=== PATIENT | female | born 1935 | race Caucasian/White ===

== ENCOUNTER 2016-10-28 21:34 | Inpatient (IN) | payer OTHER ==
[~2016-10-28] VITALS: Ht 149.9 cm; Wt 59.3 kg
[2016-10-28] MEDS ORDERED: METF500T7 PO (21:46)
[2016-10-28] MEDS ORDERED: OMEP20 PO (21:46)
[2016-10-28] MEDS ORDERED: LOSA50TA37 PO (21:46)
[2016-10-28] MEDS ORDERED: ALBU8HFA IH (21:46)
[2016-10-28] MEDS ORDERED: AMOX1TAB15 PO (21:46)
[2016-10-28] MEDS ORDERED: GLIP5 PO (21:46)
[2016-10-28] MEDS ORDERED: METO50 PO (21:46)
[2016-10-28] MEDS ORDERED: ASPI-556 PO (21:46)
[2016-10-28 21:47] LABS: GLUCOSE,POINT OF CARE 188 MG/DL (70-110)
[2016-10-28 22:16] LABS: BASOPHILS # (AUTO) 0.53 K/uL (0.00-0.20); BASOPHILS % (AUTO) 2.1 % (0.0-2.0); EOSINOPHILS # (AUTO) 0.33 K/uL (0.00-0.70); EOSINOPHILS % (AUTO) 1.29 % (1.0-6.0); HEMATOCRIT 41.2 % (36-46); HEMOGLOBIN 13.1 g/dL (12.0-16.0); LYMPHOCYTES # (AUTO) 1.3 K/uL (1.0-4.8); LYMPHOCYTES % (AUTO) 5.2 % (22.0-44.0); MEAN CORPUSCULAR HEMOGLOBIN 28.3 pg (26.0-34.0); MEAN CORPUSCULAR HGB CONC 31.7 G/dL (31.0-37.0); MEAN CORPUSCULAR VOLUME 89 fL (80-100); MONOCYTES # (AUTO) 0.4 K/uL (0.1-1.0); MONOCYTES % (AUTO) 1.8 % (2.0-9.0); NEUTROPHILS # (AUTO) 22.8 K/uL (1.8-7.7); PLATELET COUNT (AUTO) 425 K/uL (150-450); RED BLOOD CELL COUNT(AUTO) 4.62 MIL/uL (4.00-5.20); RED CELL DISTRIBUTION WIDTH 16.3 % (11.5-14.5); WHITE BLOOD COUNT (AUTO) 25.4 K/uL (4.5-11.0)
[2016-10-28 22:17] LABS: NEUTROPHILS % (AUTO) 89.7 % (40.0-70.0)
[2016-10-28 22:26] LABS: ANION GAP 9 mmol/L (8-16); CALCIUM, TOTAL 8.3 mg/dL (8.8-10.5); CARBON DIOXIDE 27 mmol/L (22-29); CHLORIDE 101 mmol/L (98-107); CREATININE 1.24 mg/dL (0.60-1.30); GLOMERULAR FILTR. RATE CALC 42 mL/min (>60); SODIUM SERUM 137 mmol/L (136-145); UREA NITROGEN, BLOOD 18 mg/dL (7-18)
[2016-10-28 22:33] LABS: ALANINE AMINOTRANSFERASE 83 U/L (12-78); ALBUMIN 3.2 g/dL (3.4-5.0); ASPARTATE AMINOTRANSFERASE 74 U/L (15-37); CREATINE KINASE, TOTAL 91 U/L (26-192); TOTAL PROTEIN, SERUM 6.7 g/dL (6.4-8.2)
[2016-10-28 22:49] LABS: B-TYPE NATRIURETIC PEPTIDE 721 pg/mL (0-100)
[2016-10-28 22:57] LABS: RBC MORPHOLOGY COMMENT NORMAL RBC MORPH
[2016-10-28] MEDS ORDERED: ALBUTEROL SULFATE 2.5 MG/0.5 ML NEB SOLUTION NEB ONE (23:15)
[2016-10-28] MEDS ORDERED: 0.9% SODIUM CHLORIDE 5 ML NEB SOLUTION NEB ONE (23:26)
[2016-10-29 00:06] LABS: CREATINE KINASE MB 2.6 ng/mL (0-5)
[2016-10-29] MEDS ORDERED: CefTRIAXone 1 GM/DEXTROSE 50 ML IV ONE (00:30)
[2016-10-29] MEDS ORDERED: FUROSEMIDE 40 MG/4 ML VIAL IVP ONE (00:30)
[2016-10-29] MEDS ORDERED: ENOXAPARIN SODIUM 60 MG/0.6 ML PF SYRINGE SQ ONE ×2 (01:00→19:00)
[2016-10-29 01:14] LABS: APPEARANCE,URINE CLOUDY (CLEAR); GLUCOSE, URINE (UA) NEGATIVE (NEGATIVE); KETONES,URINE NEGATIVE (NEGATIVE); LEUKOCYTE ESTERASE ,URINE SMALL (NEGATIVE); OCCULT BLOOD,URINE TRACE (NEGATIVE); PH,URINE 5.5 (5.0-8.0); PROTEIN,URINE SEE CONFIRM (NEGATIVE)
[2016-10-29 01:15] LABS: ADD UA MICROSCOPIC YES
[2016-10-29 01:28] LABS: SQUAMOUS EPITHELIAL CELL,UR Rare /LPF (None Seen); SULFOSALICYLIC ACID,URINE 1+ (Negative)
[2016-10-29] MEDS ORDERED: ASPIRIN 325 MG TABLET PO ONE (04:30)
[2016-10-29 05:17] VITALS: BP 131/52
[2016-10-29] MEDS ORDERED: MORPHINE SULFATE 2 MG/ML SYRINGE IVP PRN (05:30)
[2016-10-29] MEDS ORDERED: ACETAMINOPHEN 325 MG TABLET PO PRN (05:30)
[2016-10-29] MEDS ORDERED: HYDROCODONE/ACETAMINOPHEN 5-325 MG TABLET PO PRN (05:30)
[2016-10-29] MEDS ORDERED: BISACODYL 10 MG RECTAL RECTAL SUPPOSITORY PR PRN (05:30)
[2016-10-29] MEDS ORDERED: ONDANSETRON HCL 4 MG/2 ML VIAL IVP PRN (05:30)
[2016-10-29 07:49] VITALS: BP 136/53
[2016-10-29] MEDS ORDERED: ALBUTEROL SULFATE 2.5 MG/0.5 ML NEB SOLUTION NEB SCH (08:00)
[2016-10-29 08:05] LABS: BASOPHILS # (AUTO) 0.11 K/uL (0.00-0.20); BASOPHILS % (AUTO) 0.5 % (0.0-2.0); EOSINOPHILS # (AUTO) 0.33 K/uL (0.00-0.70); EOSINOPHILS % (AUTO) 1.55 % (1.0-6.0); HEMATOCRIT 40.1 % (36-46); HEMOGLOBIN 12.6 g/dL (12.0-16.0); LYMPHOCYTES # (AUTO) 1.3 K/uL (1.0-4.8); MEAN CORPUSCULAR HEMOGLOBIN 28.2 pg (26.0-34.0); MEAN CORPUSCULAR HGB CONC 31.5 G/dL (31.0-37.0); MEAN CORPUSCULAR VOLUME 90 fL (80-100); MONOCYTES # (AUTO) 0.3 K/uL (0.1-1.0); MONOCYTES % (AUTO) 1.3 % (2.0-9.0); NEUTROPHILS # (AUTO) 19.3 K/uL (1.8-7.7); NEUTROPHILS % (AUTO) 90.6 % (40.0-70.0); PLATELET COUNT (AUTO) 374 K/uL (150-450); RED BLOOD CELL COUNT(AUTO) 4.47 MIL/uL (4.00-5.20); RED CELL DISTRIBUTION WIDTH 15.7 % (11.5-14.5); WHITE BLOOD COUNT (AUTO) 21.3 K/uL (4.5-11.0)
[2016-10-29 08:20] LABS: ALBUMIN 3.1 g/dL (3.4-5.0); BILIRUBIN,TOTAL 0.5 mg/dL (0.1-1.0); CALCIUM, TOTAL 8.2 mg/dL (8.8-10.5); CREATININE 1.25 mg/dL (0.60-1.30); POTASSIUM 4.4 mmol/L (3.5-5.1); TOTAL PROTEIN, SERUM 6.5 g/dL (6.4-8.2)
[2016-10-29 08:31] LABS: PROTHROMBIN TIME 10.5 SEC (9.4-11.6)
[2016-10-29] MEDS: PIPERACILLIN/TAZO 3.375 GM/D5W 50 ML IV SCH ×2 (09:00→18:08)
[2016-10-29] MEDS ORDERED: DOCUSATE SODIUM 100 MG CAPSULE PO SCH (09:00)
[2016-10-29] MEDS ORDERED: PANTOPRAZOLE SODIUM 40 MG/VIAL IVP SCH (09:00)
[2016-10-29] MEDS ORDERED: DEXTROSE 50%-WATER 25 GM/50 ML SYRINGE IVP PRN (11:00)
[2016-10-29] MEDS ORDERED: FUROSEMIDE 20 MG/2 ML VIAL IVP SCH (11:00)
[2016-10-29 11:15] VITALS: BP 134/55
[2016-10-29] MEDS: INSULIN ASPART 100 UNITS/ML SQ PRN ×3 (11:47→20:57)
[2016-10-29] MEDS ORDERED: HEPARIN SODIUM,PORCINE 1,000 UNITS/ML VIAL IVP ONE (12:00)
[2016-10-29 14:28] LABS: GLUCOSE,POINT OF CARE 213 MG/DL (70-110)
[2016-10-29] MEDS: OMEPRAZOLE 20 MG CAPSULE PO SCH (14:45)
[2016-10-29 15:37] VITALS: BP 136/51
[2016-10-29] MEDS: FUROSEMIDE 20 MG/2 ML VIAL IVP SCH ×2 (16:29→20:44)
[2016-10-29] MEDS: METOPROLOL TARTRATE 50 MG TABLET PO SCH (16:29)
[2016-10-29] MEDS: LOSARTAN POTASSIUM 50 MG TABLET PO SCH (16:29)
[2016-10-29] MEDS: ASPIRIN 81 MG EC TABLET PO SCH (16:29)
[2016-10-29] MEDS: NITROGLYCERIN 2% (1 GM=INCH) PACKET TP SCH ×3 (16:30→23:44)
[2016-10-29] MEDS: ENOXAPARIN SODIUM 60 MG/0.6 ML PF SYRINGE SQ SCH ×2 (16:30→20:44)
[2016-10-29] MEDS ORDERED: SODIUM CHLORIDE 0.9% 100 ML ONE (18:03)
[2016-10-29] MEDS: MetFORMIN HCL 500 MG ER TABLET PO SCH (18:07)
[2016-10-29 18:37] LABS: GLUCOSE COMMENT 1 Received Meds; GLUCOSE,POINT OF CARE 227 MG/DL (70-110)
[2016-10-29] MEDS ORDERED: CefTRIAXone 1 GM/DEXTROSE 50 ML IV SCH (19:00)
[2016-10-29 19:19] VITALS: BP 117/48
[2016-10-29] MEDS: OXYGEN THERAPY IH SCH (20:44)
[2016-10-29 23:52] VITALS: BP 122/48
[2016-10-30 04:37] VITALS: BP 129/49
[2016-10-30] MEDS: NITROGLYCERIN 2% (1 GM=INCH) PACKET TP SCH ×3 (06:49→18:18)
[2016-10-30] MEDS: INSULIN ASPART 100 UNITS/ML SQ PRN ×4 (06:54→20:56)
[2016-10-30 07:32] VITALS: BP 140/62
[2016-10-30 08:08] LABS: BASOPHILS # (AUTO) 0.16 K/uL (0.00-0.20); BASOPHILS % (AUTO) 0.8 % (0.0-2.0); EOSINOPHILS % (AUTO) 2.36 % (1.0-6.0); HEMATOCRIT 39.7 % (36-46); HEMOGLOBIN 12.6 g/dL (12.0-16.0); LYMPHOCYTES # (AUTO) 1.5 K/uL (1.0-4.8); LYMPHOCYTES % (AUTO) 7.3 % (22.0-44.0); MEAN CORPUSCULAR HEMOGLOBIN 28.3 pg (26.0-34.0); MEAN CORPUSCULAR HGB CONC 31.7 G/dL (31.0-37.0); MEAN CORPUSCULAR VOLUME 89 fL (80-100); MONOCYTES # (AUTO) 0.3 K/uL (0.1-1.0); MONOCYTES % (AUTO) 1.3 % (2.0-9.0); NEUTROPHILS # (AUTO) 18.6 K/uL (1.8-7.7); PLATELET COUNT (AUTO) 408 K/uL (150-450); RED BLOOD CELL COUNT(AUTO) 4.44 MIL/uL (4.00-5.20); RED CELL DISTRIBUTION WIDTH 15.5 % (11.5-14.5); WHITE BLOOD COUNT (AUTO) 21.1 K/uL (4.5-11.0)
[2016-10-30 08:10] LABS: NEUTROPHILS % (AUTO) 88.3 % (40.0-70.0)
[2016-10-30 08:11] LABS: RBC MORPHOLOGY COMMENT NORMAL RBC MORPH
[2016-10-30 08:39] LABS: HEMOGLOBIN A1C 7.8 % (4.5-6.2)
[2016-10-30] MEDS: OMEPRAZOLE 20 MG CAPSULE PO SCH (08:47)
[2016-10-30] MEDS: OXYGEN THERAPY IH SCH (08:47)
[2016-10-30] MEDS: MetFORMIN HCL 500 MG ER TABLET PO SCH ×2 (08:47→18:17)
[2016-10-30] MEDS: ASPIRIN 81 MG EC TABLET PO SCH (08:47)
[2016-10-30] MEDS: METOPROLOL TARTRATE 50 MG TABLET PO SCH (08:47)
[2016-10-30] MEDS: FUROSEMIDE 20 MG/2 ML VIAL IVP SCH ×2 (08:47→19:59)
[2016-10-30] MEDS: LOSARTAN POTASSIUM 50 MG TABLET PO SCH (08:47)
[2016-10-30 08:48] LABS: BILIRUBIN,TOTAL 0.6 mg/dL (0.1-1.0); CALCIUM, TOTAL 8.5 mg/dL (8.8-10.5); CHOL/HDL RATIO 2.4 (3.9-5.7); CREATININE 1.31 mg/dL (0.60-1.30); MAGNESIUM 1.7 mg/dL (1.80-2.40); POTASSIUM 4.2 mmol/L (3.5-5.1); THYROID STIMULATING HORMONE 0.92 uIU/mL (0.36-3.74); TOTAL PROTEIN, SERUM 6.6 g/dL (6.4-8.2)
[2016-10-30] MEDS: ENOXAPARIN SODIUM 60 MG/0.6 ML PF SYRINGE SQ SCH (08:48)
[2016-10-30 09:37] LABS: GLUCOSE COMMENT 1 Received Meds; GLUCOSE,POINT OF CARE 161 MG/DL (70-110)
[2016-10-30 09:37] LABS: GLUCOSE COMMENT 1 Received Meds; GLUCOSE,POINT OF CARE 239 MG/DL (70-110)
[2016-10-30 11:42] VITALS: BP 133/52
[2016-10-30] MEDS ORDERED: METF500T4 PO (14:05)
[2016-10-30 15:45] VITALS: BP 132/52
[2016-10-30] MEDS ORDERED: PNEUMOCOCCAL VACCINE POLYVALENT 0.5 ML VIAL [PPSV23] IM ONE (17:45)
[2016-10-30 19:33] VITALS: BP 132/50
[2016-10-30 23:33] VITALS: BP 142/49
[2016-10-31] MEDS: NITROGLYCERIN 2% (1 GM=INCH) PACKET TP SCH ×4 (00:05→17:20)
[2016-10-31 04:32] VITALS: BP 135/51
[2016-10-31] MEDS: INSULIN ASPART 100 UNITS/ML SQ PRN ×3 (06:26→21:08)
[2016-10-31 08:02] LABS: GLUCOSE,POINT OF CARE 278 MG/DL (70-110)
[2016-10-31 08:08] VITALS: BP 133/51
[2016-10-31] MEDS: ASPIRIN 81 MG EC TABLET PO SCH (08:11)
[2016-10-31] MEDS: OXYGEN THERAPY IH SCH ×3 (08:11→19:10)
[2016-10-31] MEDS: MetFORMIN HCL 500 MG ER TABLET PO SCH ×2 (08:11→17:20)
[2016-10-31 08:12] LABS: GLUCOSE COMMENT 1 Received Meds; GLUCOSE,POINT OF CARE 151 MG/DL (70-110)
[2016-10-31] MEDS: METOPROLOL TARTRATE 50 MG TABLET PO SCH ×2 (08:12→20:04)
[2016-10-31] MEDS: LOSARTAN POTASSIUM 50 MG TABLET PO SCH (08:12)
[2016-10-31] MEDS: OMEPRAZOLE 20 MG CAPSULE PO SCH (08:12)
[2016-10-31] MEDS: FUROSEMIDE 20 MG/2 ML VIAL IVP SCH ×2 (08:12→20:04)
[2016-10-31 08:17] LABS: GLUCOSE COMMENT 1 Received Meds; GLUCOSE,POINT OF CARE 191 MG/DL (70-110)
[2016-10-31 08:32] LABS: GLUCOSE COMMENT 1 Received Meds; GLUCOSE,POINT OF CARE 201 MG/DL (70-110)
[2016-10-31 11:40] VITALS: BP 128/47
[2016-10-31 15:48] VITALS: BP 111/47
[2016-10-31 18:55] VITALS: BP 113/53
[2016-10-31] MEDS ORDERED: DIGOXIN 250 MCG/ML 2 ML AMP IVP ONE (19:00)
[2016-10-31 19:36] VITALS: BP 102/56
[2016-11-01] VITALS (7 sets, daily range): BP systolic 111–130; BP diastolic 43–59
[2016-11-01] MEDS ORDERED: DIGOXIN 250 MCG/ML 2 ML AMP IVP ONE (01:00)
[2016-11-01] MEDS: NITROGLYCERIN 2% (1 GM=INCH) PACKET TP SCH ×4 (04:56→17:49)
[2016-11-01] MEDS: INSULIN ASPART 100 UNITS/ML SQ PRN ×3 (05:45→21:57)
[2016-11-01 06:58] LABS: CALCIUM, TOTAL 8.4 mg/dL (8.8-10.5); CREATININE 1.74 mg/dL (0.60-1.30); POTASSIUM 3.9 mmol/L (3.5-5.1)
[2016-11-01 07:04] LABS: BASOPHILS # (AUTO) 0.12 K/uL (0.00-0.20); BASOPHILS % (AUTO) 0.5 % (0.0-2.0); EOSINOPHILS # (AUTO) 0.43 K/uL (0.00-0.70); HEMATOCRIT 40.7 % (36-46); HEMOGLOBIN 12.6 g/dL (12.0-16.0); LYMPHOCYTES # (AUTO) 1.5 K/uL (1.0-4.8); LYMPHOCYTES % (AUTO) 6.4 % (22.0-44.0); MEAN CORPUSCULAR HEMOGLOBIN 28.2 pg (26.0-34.0); MEAN CORPUSCULAR VOLUME 91 fL (80-100); MONOCYTES # (AUTO) 0.3 K/uL (0.1-1.0); MONOCYTES % (AUTO) 1.3 % (2.0-9.0); NEUTROPHILS # (AUTO) 21.4 K/uL (1.8-7.7); NEUTROPHILS % (AUTO) 90.1 % (40.0-70.0); PLATELET COUNT (AUTO) 442 K/uL (150-450); RED BLOOD CELL COUNT(AUTO) 4.46 MIL/uL (4.00-5.20); RED CELL DISTRIBUTION WIDTH 15.7 % (11.5-14.5); WHITE BLOOD COUNT (AUTO) 23.8 K/uL (4.5-11.0)
[2016-11-01 07:51] LABS: RBC MORPHOLOGY COMMENT ABNORMAL RBC MORPH
[2016-11-01] MEDS: OXYGEN THERAPY IH SCH ×2 (08:12→21:56)
[2016-11-01] MEDS: MetFORMIN HCL 500 MG ER TABLET PO SCH ×2 (08:12→17:47)
[2016-11-01] MEDS: ASPIRIN 81 MG EC TABLET PO SCH (08:13)
[2016-11-01] MEDS: LOSARTAN POTASSIUM 50 MG TABLET PO SCH (08:13)
[2016-11-01] MEDS: METOPROLOL TARTRATE 50 MG TABLET PO SCH ×2 (08:13→21:56)
[2016-11-01] MEDS: FUROSEMIDE 20 MG/2 ML VIAL IVP SCH ×2 (08:13→21:56)
[2016-11-01] MEDS: OMEPRAZOLE 20 MG CAPSULE PO SCH (08:13)
[2016-11-01 12:18] LABS: GLUCOSE COMMENT 1 Received Meds; GLUCOSE,POINT OF CARE 198 MG/DL (70-110)
[2016-11-01 20:08] LABS: GLUCOSE,POINT OF CARE 138 MG/DL (70-110)
[2016-11-01 20:23] LABS: GLUCOSE COMMENT 1 Received Meds; GLUCOSE,POINT OF CARE 178 MG/DL (70-110)
[2016-11-01 20:23] LABS: GLUCOSE COMMENT 1 Received Meds; GLUCOSE,POINT OF CARE 282 MG/DL (70-110)
[2016-11-02] MEDS ORDERED: AZITHROMYCIN 500 MG/NS 250 ML IV ONE
[2016-11-02] MEDS ORDERED: SODIUM CHLORIDE 0.9% 250 ML IV ONE (00:50)
[2016-11-02] MEDS: NITROGLYCERIN 2% (1 GM=INCH) PACKET TP SCH ×4 (01:05→18:18)
[2016-11-02] MEDS: CefTRIAXone 1 GM/DEXTROSE 50 ML IV SCH (02:05)
[2016-11-02 05:18] VITALS: BP 118/43
[2016-11-02] MEDS: INSULIN ASPART 100 UNITS/ML SQ PRN ×3 (05:49→18:21)
[2016-11-02 06:31] LABS: BASOPHILS # (AUTO) 0.17 K/uL (0.00-0.20); BASOPHILS % (AUTO) 0.6 % (0.0-2.0); EOSINOPHILS # (AUTO) 0.66 K/uL (0.00-0.70); EOSINOPHILS % (AUTO) 2.38 % (1.0-6.0); HEMATOCRIT 38.1 % (36-46); HEMOGLOBIN 11.8 g/dL (12.0-16.0); LYMPHOCYTES # (AUTO) 1.8 K/uL (1.0-4.8); LYMPHOCYTES % (AUTO) 6.4 % (22.0-44.0); MEAN CORPUSCULAR HEMOGLOBIN 28.2 pg (26.0-34.0); MEAN CORPUSCULAR HGB CONC 30.9 G/dL (31.0-37.0); MEAN CORPUSCULAR VOLUME 91 fL (80-100); MONOCYTES # (AUTO) 0.3 K/uL (0.1-1.0); PLATELET COUNT (AUTO) 488 K/uL (150-450); RED BLOOD CELL COUNT(AUTO) 4.18 MIL/uL (4.00-5.20); RED CELL DISTRIBUTION WIDTH 15.4 % (11.5-14.5); WHITE BLOOD COUNT (AUTO) 27.9 K/uL (4.5-11.0)
[2016-11-02 06:44] LABS: ALBUMIN 3.2 g/dL (3.4-5.0); BILIRUBIN,TOTAL 0.3 mg/dL (0.1-1.0); CREATININE 1.73 mg/dL (0.60-1.30); MAGNESIUM 1.9 mg/dL (1.80-2.40); POTASSIUM 3.8 mmol/L (3.5-5.1); TOTAL PROTEIN, SERUM 6.6 g/dL (6.4-8.2)
[2016-11-02 06:49] LABS: NEUTROPHILS % (AUTO) 89.7 % (40.0-70.0)
[2016-11-02 07:23] LABS: GLUCOSE COMMENT 1 Received Meds; GLUCOSE,POINT OF CARE 190 MG/DL (70-110)
[2016-11-02 07:51] LABS: RBC MORPHOLOGY COMMENT ABNORMAL RBC MORPH
[2016-11-02 08:27] VITALS: BP 126/44
[2016-11-02] MEDS: MetFORMIN HCL 500 MG ER TABLET PO SCH ×2 (08:39→18:00)
[2016-11-02] MEDS: OMEPRAZOLE 20 MG CAPSULE PO SCH (08:39)
[2016-11-02] MEDS: ASPIRIN 81 MG EC TABLET PO SCH (08:39)
[2016-11-02] MEDS: METOPROLOL TARTRATE 50 MG TABLET PO SCH ×2 (08:40→20:51)
[2016-11-02] MEDS: LOSARTAN POTASSIUM 50 MG TABLET PO SCH (08:40)
[2016-11-02] MEDS: OXYGEN THERAPY IH SCH ×2 (08:45→20:55)
[2016-11-02] MEDS: FUROSEMIDE 20 MG/2 ML VIAL IVP SCH ×2 (10:28→20:51)
[2016-11-02 11:48] VITALS: BP 124/48
[2016-11-02 15:00] VITALS: BP 118/44
[2016-11-02 21:43] VITALS: BP 131/49
[2016-11-02 23:52] VITALS: BP 111/45
[2016-11-03] MEDS: AZITHROMYCIN 250 MG in SODIUM CHLORIDE 0.9% 150 ML IV SCH (00:22)
[2016-11-03] MEDS: NITROGLYCERIN 2% (1 GM=INCH) PACKET TP SCH ×4 (00:22→17:45)
[2016-11-03] MEDS: CefTRIAXone 1 GM/DEXTROSE 50 ML IV SCH (02:16)
[2016-11-03 04:05] VITALS: BP 117/44
[2016-11-03 07:27] LABS: GLUCOSE COMMENT 1 Received Meds; GLUCOSE,POINT OF CARE 133 MG/DL (70-110)
[2016-11-03 07:42] VITALS: BP 131/43
[2016-11-03] MEDS: ASPIRIN 81 MG EC TABLET PO SCH (07:52)
[2016-11-03] MEDS: OMEPRAZOLE 20 MG CAPSULE PO SCH (07:52)
[2016-11-03] MEDS: METOPROLOL TARTRATE 50 MG TABLET PO SCH ×2 (07:52→20:18)
[2016-11-03] MEDS: LOSARTAN POTASSIUM 50 MG TABLET PO SCH (07:52)
[2016-11-03] MEDS: MetFORMIN HCL 500 MG ER TABLET PO SCH ×2 (07:52→17:45)
[2016-11-03] MEDS: OXYGEN THERAPY IH SCH ×2 (07:53→08:00)
[2016-11-03] MEDS: INSULIN ASPART 100 UNITS/ML SQ PRN ×4 (07:58→20:53)
[2016-11-03] MEDS: FUROSEMIDE 20 MG/2 ML VIAL IVP SCH ×2 (09:01→20:17)
[2016-11-03 09:38] LABS: GLUCOSE COMMENT 1 Received Meds; GLUCOSE,POINT OF CARE 177 MG/DL (70-110)
[2016-11-03 09:38] LABS: GLUCOSE COMMENT 1 Received Meds; GLUCOSE,POINT OF CARE 274 MG/DL (70-110)
[2016-11-03 11:37] VITALS: BP 122/43
[2016-11-03 11:46] LABS: GLUCOSE COMMENT 1 Received Meds; GLUCOSE,POINT OF CARE 231 MG/DL (70-110)
[2016-11-03 15:38] VITALS: BP 118/41
[2016-11-03 19:15] VITALS: BP 125/49
[2016-11-03] MEDS ORDERED: 0.9% SODIUM CHLORIDE 5 ML NEB SOLUTION NEB ONE (20:48)
[2016-11-03] MEDS: BUDESONIDE 0.5 MG/2 ML NEB SOLUTION NEB SCH (20:52)
[2016-11-04 00:04] VITALS: BP 121/45
[2016-11-04] MEDS: NITROGLYCERIN 2% (1 GM=INCH) PACKET TP SCH ×4 (00:44→18:03)
[2016-11-04] MEDS: AZITHROMYCIN 250 MG in SODIUM CHLORIDE 0.9% 150 ML IV SCH (00:44)
[2016-11-04] MEDS: CefTRIAXone 1 GM/DEXTROSE 50 ML IV SCH (01:52)
[2016-11-04 05:29] VITALS: BP 113/41
[2016-11-04 05:53] LABS: BASOPHILS # (AUTO) 0.33 K/uL (0.00-0.20); BASOPHILS % (AUTO) 1.1 % (0.0-2.0); EOSINOPHILS # (AUTO) 0.53 K/uL (0.00-0.70); EOSINOPHILS % (AUTO) 1.79 % (1.0-6.0); HEMATOCRIT 40.9 % (36-46); HEMOGLOBIN 12.7 g/dL (12.0-16.0); LYMPHOCYTES # (AUTO) 1.6 K/uL (1.0-4.8); LYMPHOCYTES % (AUTO) 5.6 % (22.0-44.0); MEAN CORPUSCULAR HEMOGLOBIN 28.2 pg (26.0-34.0); MEAN CORPUSCULAR VOLUME 91 fL (80-100); MONOCYTES # (AUTO) 0.5 K/uL (0.1-1.0); MONOCYTES % (AUTO) 1.6 % (2.0-9.0); NEUTROPHILS # (AUTO) 26.5 K/uL (1.8-7.7); PLATELET COUNT (AUTO) 559 K/uL (150-450); RED CELL DISTRIBUTION WIDTH 15.5 % (11.5-14.5); WHITE BLOOD COUNT (AUTO) 29.5 K/uL (4.5-11.0)
[2016-11-04 06:32] LABS: PROTHROMBIN TIME 10.6 SEC (9.4-11.6)
[2016-11-04 06:37] LABS: GLUCOSE,POINT OF CARE 196 MG/DL (70-110)
[2016-11-04 06:55] LABS: RBC MORPHOLOGY COMMENT ABNORMAL RBC MORPH
[2016-11-04 07:00] VITALS: BP 129/48
[2016-11-04 07:08] LABS: CREATININE 2.14 mg/dL (0.60-1.30); POTASSIUM 4.5 mmol/L (3.5-5.1)
[2016-11-04 07:09] LABS: ALBUMIN 3.3 g/dL (3.4-5.0); BILIRUBIN,TOTAL 0.3 mg/dL (0.1-1.0); CALCIUM, TOTAL 8.2 mg/dL (8.8-10.5); TOTAL PROTEIN, SERUM 6.8 g/dL (6.4-8.2)
[2016-11-04] MEDS ORDERED: 0.9% SODIUM CHLORIDE 5 ML NEB SOLUTION NEB ONE ×2 (09:20→19:42)
[2016-11-04 09:27] LABS: GLUCOSE COMMENT 1 Received Meds; GLUCOSE,POINT OF CARE 191 MG/DL (70-110)
[2016-11-04 09:27] LABS: GLUCOSE COMMENT 1 Received Meds; GLUCOSE,POINT OF CARE 184 MG/DL (70-110)
[2016-11-04 09:27] LABS: GLUCOSE COMMENT 1 Received Meds; GLUCOSE,POINT OF CARE 182 MG/DL (70-110)
[2016-11-04 09:28] LABS: GLUCOSE COMMENT 1 Received Meds; GLUCOSE,POINT OF CARE 221 MG/DL (70-110)
[2016-11-04 09:32] LABS: GLUCOSE COMMENT 1 Received Meds; GLUCOSE,POINT OF CARE 237 MG/DL (70-110)
[2016-11-04] MEDS: ALBUTEROL SULFATE 2.5 MG/0.5 ML NEB SOLUTION NEB PRN (09:42)
[2016-11-04] MEDS: BUDESONIDE 0.5 MG/2 ML NEB SOLUTION NEB SCH ×2 (09:51→19:42)
[2016-11-04] MEDS: IPRATROPIUM BROMIDE 0.5 MG/2.5 ML NEB SOLUTION NEB PRN (09:53)
[2016-11-04] MEDS: INSULIN ASPART 100 UNITS/ML SQ PRN ×3 (12:38→20:28)
[2016-11-04] MEDS: LOSARTAN POTASSIUM 50 MG TABLET PO SCH ×2 (12:56→13:00)
[2016-11-04] MEDS: METOPROLOL TARTRATE 50 MG TABLET PO SCH ×2 (12:56→20:08)
[2016-11-04] MEDS: ASPIRIN 81 MG EC TABLET PO SCH ×2 (12:56→13:01)
[2016-11-04] MEDS: OMEPRAZOLE 20 MG CAPSULE PO SCH ×2 (12:56→13:00)
[2016-11-04] MEDS: FUROSEMIDE 20 MG/2 ML VIAL IVP SCH ×2 (13:03→20:27)
[2016-11-04 13:14] LABS: APPEARANCE,UNSPUN,BODY FLUID HAZY (CLEAR); COLOR,BODY FLUID YELLOW (LT YELLOW)
[2016-11-04 15:04] VITALS: BP 115/46
[2016-11-04] MEDS: MetFORMIN HCL 500 MG ER TABLET PO SCH (18:00)
[2016-11-04 19:34] VITALS: BP 102/47
[2016-11-04 20:27] LABS: GLUCOSE,POINT OF CARE 279 MG/DL (70-110)
[2016-11-04 23:33] VITALS: BP 123/45
[2016-11-05] MEDS: OXYGEN THERAPY IH SCH ×4 (00:30→20:44)
[2016-11-05] MEDS: NITROGLYCERIN 2% (1 GM=INCH) PACKET TP SCH ×5 (00:31→23:15)
[2016-11-05] MEDS: CefTRIAXone 1 GM/DEXTROSE 50 ML IV SCH (00:31)
[2016-11-05] MEDS: AZITHROMYCIN 250 MG in SODIUM CHLORIDE 0.9% 150 ML IV SCH ×2 (01:17→22:57)
[2016-11-05 04:15] VITALS: BP 117/42
[2016-11-05] MEDS: INSULIN ASPART 100 UNITS/ML SQ PRN ×4 (06:13→20:43)
[2016-11-05 06:49] LABS: BASOPHILS % (AUTO) 0.5 % (0.0-2.0); EOSINOPHILS % (AUTO) 2.2 % (1.0-6.0); HEMATOCRIT 39.2 % (36-46); LYMPHOCYTES # (AUTO) 1.3 K/uL (1.0-4.8); LYMPHOCYTES % (AUTO) 5.2 % (22.0-44.0); MEAN CORPUSCULAR HEMOGLOBIN 27.7 pg (26.0-34.0); MEAN CORPUSCULAR HGB CONC 30.6 G/dL (31.0-37.0); MEAN CORPUSCULAR VOLUME 91 fL (80-100); MONOCYTES # (AUTO) 0.4 K/uL (0.1-1.0); MONOCYTES % (AUTO) 1.6 % (2.0-9.0); NEUTROPHILS # (AUTO) 23.3 K/uL (1.8-7.7); NEUTROPHILS % (AUTO) 90.5 % (40.0-70.0); PLATELET COUNT (AUTO) 493 K/uL (150-450); RED BLOOD CELL COUNT(AUTO) 4.32 MIL/uL (4.00-5.20); RED CELL DISTRIBUTION WIDTH 15.4 % (11.5-14.5); WHITE BLOOD COUNT (AUTO) 25.8 K/uL (4.5-11.0)
[2016-11-05 07:01] LABS: CALCIUM, TOTAL 7.9 mg/dL (8.8-10.5); CREATININE 2.15 mg/dL (0.60-1.30); MAGNESIUM 2.5 mg/dL (1.80-2.40); POTASSIUM 4.2 mmol/L (3.5-5.1)
[2016-11-05 07:22] LABS: GLUCOSE,POINT OF CARE 183 MG/DL (70-110)
[2016-11-05 07:25] VITALS: BP 118/63
[2016-11-05] MEDS: MetFORMIN HCL 500 MG ER TABLET PO SCH ×2 (08:27→18:05)
[2016-11-05] MEDS: FUROSEMIDE 20 MG/2 ML VIAL IVP SCH ×2 (08:28→20:42)
[2016-11-05] MEDS: METOPROLOL TARTRATE 50 MG TABLET PO SCH ×2 (08:29→20:42)
[2016-11-05] MEDS: BUDESONIDE 0.5 MG/2 ML NEB SOLUTION NEB SCH ×2 (10:51→21:26)
[2016-11-05 11:10] VITALS: BP 117/44
[2016-11-05 12:13] LABS: GLUCOSE COMMENT 1 Received Meds; GLUCOSE,POINT OF CARE 185 MG/DL (70-110)
[2016-11-05 15:15] VITALS: BP 112/52
[2016-11-05 16:27] LABS: TOTAL PROTEIN,BODY FLUID,REF 2.2 g/dL
[2016-11-05 19:59] VITALS: BP 118/41
[2016-11-05] MEDS ORDERED: SODIUM CHLORIDE 0.45% 1,000 ML IV SCH (22:00)
[2016-11-05 23:17] VITALS: BP 118/41
[2016-11-06] MEDS: CefTRIAXone 1 GM/DEXTROSE 50 ML IV SCH (01:33)
[2016-11-06 03:43] VITALS: BP 109/38
[2016-11-06] MEDS: NITROGLYCERIN 2% (1 GM=INCH) PACKET TP SCH ×3 (06:08→17:29)
[2016-11-06] MEDS: INSULIN ASPART 100 UNITS/ML SQ PRN ×4 (06:09→21:17)
[2016-11-06 07:00] LABS: CALCIUM, TOTAL 8.2 mg/dL (8.8-10.5); CREATININE 2.22 mg/dL (0.60-1.30); MAGNESIUM 2.5 mg/dL (1.80-2.40); POTASSIUM 4.6 mmol/L (3.5-5.1)
[2016-11-06 07:11] LABS: GLUCOSE COMMENT 1 Received Meds; GLUCOSE,POINT OF CARE 176 MG/DL (70-110)
[2016-11-06 07:12] VITALS: BP 117/36
[2016-11-06] MEDS: OMEPRAZOLE 20 MG CAPSULE PO SCH (08:48)
[2016-11-06] MEDS: METOPROLOL TARTRATE 50 MG TABLET PO SCH ×2 (08:48→20:32)
[2016-11-06] MEDS: LOSARTAN POTASSIUM 50 MG TABLET PO SCH (08:49)
[2016-11-06] MEDS: ASPIRIN 81 MG EC TABLET PO SCH (08:49)
[2016-11-06] MEDS: OXYGEN THERAPY IH SCH ×2 (08:51→20:33)
[2016-11-06] MEDS: BUDESONIDE 0.5 MG/2 ML NEB SOLUTION NEB SCH ×2 (09:36→20:48)
[2016-11-06] MEDS: IPRATROPIUM BROMIDE 0.5 MG/2.5 ML NEB SOLUTION NEB PRN (09:36)
[2016-11-06] MEDS: ALBUTEROL SULFATE 2.5 MG/0.5 ML NEB SOLUTION NEB PRN ×2 (09:36→20:47)
[2016-11-06 10:55] VITALS: BP 102/42
[2016-11-06] MEDS: SODIUM BICARBONATE 100 MEQ in DEXTROSE 5%-WATER 1,000 ML IV SCH (10:58)
[2016-11-06 13:48] LABS: APPEARANCE,URINE CLOUDY (CLEAR); GLUCOSE, URINE (UA) NEGATIVE (NEGATIVE); KETONES,URINE NEGATIVE (NEGATIVE); LEUKOCYTE ESTERASE ,URINE MODERATE (NEGATIVE); OCCULT BLOOD,URINE NEGATIVE (NEGATIVE); PH,URINE 5.5 (5.0-8.0); PROTEIN,URINE SEE CONFIRM (NEGATIVE)
[2016-11-06 13:55] LABS: SULFOSALICYLIC ACID,URINE 2+ (Negative)
[2016-11-06 13:58] LABS: RENAL EPITHELIAL CELLS,URINE Few /LPF (None Seen); SQUAMOUS EPITHELIAL CELL,UR Few /LPF (None Seen)
[2016-11-06 16:13] VITALS: BP 128/41
[2016-11-06 19:11] VITALS: BP 127/58
[2016-11-06 23:29] VITALS: BP 110/41
[2016-11-07] VITALS (7 sets, daily range): BP systolic 109–126; BP diastolic 36–57
[2016-11-07] MEDS: AZITHROMYCIN 250 MG in SODIUM CHLORIDE 0.9% 150 ML IV SCH (00:02)
[2016-11-07] MEDS: NITROGLYCERIN 2% (1 GM=INCH) PACKET TP SCH ×4 (00:03→17:18)
[2016-11-07] MEDS: CefTRIAXone 1 GM/DEXTROSE 50 ML IV SCH (01:31)
[2016-11-07] MEDS: SODIUM BICARBONATE 100 MEQ in DEXTROSE 5%-WATER 1,000 ML IV SCH (05:19)
[2016-11-07] MEDS: INSULIN ASPART 100 UNITS/ML SQ PRN ×4 (05:47→20:47)
[2016-11-07 07:14] LABS: CALCIUM, TOTAL 8.2 mg/dL (8.8-10.5); CREATININE 2.27 mg/dL (0.60-1.30); MAGNESIUM 2.5 mg/dL (1.80-2.40); PHOSPHORUS 4.3 mg/dL (2.5-4.9); POTASSIUM 4.1 mmol/L (3.5-5.1)
[2016-11-07] MEDS: OXYGEN THERAPY IH SCH ×2 (08:59→20:00)
[2016-11-07] MEDS: ASPIRIN 81 MG EC TABLET PO SCH (08:59)
[2016-11-07] MEDS: OMEPRAZOLE 20 MG CAPSULE PO SCH (08:59)
[2016-11-07] MEDS: METOPROLOL TARTRATE 50 MG TABLET PO SCH ×2 (08:59→20:43)
[2016-11-07 09:01] LABS: GLUCOSE,POINT OF CARE 296 MG/DL (70-110)
[2016-11-07] MEDS: BUDESONIDE 0.5 MG/2 ML NEB SOLUTION NEB SCH ×2 (09:22→21:45)
[2016-11-07] MEDS ORDERED: SODIUM CHLORIDE 0.9% 1,000 ML IV ONE (13:15)
[2016-11-08 00:12] LABS: GLUCOSE,POINT OF CARE 231 MG/DL (70-110)
[2016-11-08 00:12] LABS: GLUCOSE,POINT OF CARE 211 MG/DL (70-110)
[2016-11-08 00:12] LABS: GLUCOSE,POINT OF CARE 170 MG/DL (70-110)
[2016-11-08 00:16] LABS: GLUCOSE COMMENT 1 Received Meds; GLUCOSE,POINT OF CARE 228 MG/DL (70-110)
[2016-11-08] MEDS: AZITHROMYCIN 250 MG in SODIUM CHLORIDE 0.9% 150 ML IV SCH ×2 (00:57→23:39)
[2016-11-08] MEDS: CefTRIAXone 1 GM/DEXTROSE 50 ML IV SCH (02:18)
[2016-11-08 04:06] VITALS: BP 117/40
[2016-11-08] MEDS: NITROGLYCERIN 2% (1 GM=INCH) PACKET TP SCH ×3 (05:13→11:16)
[2016-11-08 07:09] VITALS: BP 119/37
[2016-11-08 07:18] LABS: CREATININE 2.42 mg/dL (0.60-1.30); POTASSIUM 4.5 mmol/L (3.5-5.1)
[2016-11-08] MEDS: ASPIRIN 81 MG EC TABLET PO SCH (08:01)
[2016-11-08] MEDS: METOPROLOL TARTRATE 50 MG TABLET PO SCH (08:01)
[2016-11-08] MEDS: OXYGEN THERAPY IH SCH ×2 (08:01→20:25)
[2016-11-08 08:11] LABS: IGG (IMMUNOFIXATION) 1305 mg/dL (700-1600)
[2016-11-08] MEDS: BUDESONIDE 0.5 MG/2 ML NEB SOLUTION NEB SCH ×2 (09:13→20:06)
[2016-11-08 11:02] VITALS: BP 121/36
[2016-11-08] MEDS: INSULIN ASPART 100 UNITS/ML SQ PRN ×3 (11:42→20:44)
[2016-11-08 15:02] VITALS: BP 130/35
[2016-11-08 19:39] VITALS: BP 118/45
[2016-11-08 23:29] VITALS: BP 120/40
[2016-11-09] MEDS: CefTRIAXone 1 GM/DEXTROSE 50 ML IV SCH (01:41)
[2016-11-09 04:50] VITALS: BP 118/35
[2016-11-09] MEDS: INSULIN ASPART 100 UNITS/ML SQ PRN ×4 (05:58→22:37)
[2016-11-09 07:00] LABS: ALBUMIN 3.1 g/dL (3.4-5.0); BILIRUBIN,TOTAL 0.2 mg/dL (0.1-1.0); CALCIUM, TOTAL 8.1 mg/dL (8.8-10.5); CREATININE 2.81 mg/dL (0.60-1.30); MAGNESIUM 2.6 mg/dL (1.80-2.40); PHOSPHORUS 6.7 mg/dL (2.5-4.9); POTASSIUM 4.4 mmol/L (3.5-5.1); TOTAL PROTEIN, SERUM 6.3 g/dL (6.4-8.2)
[2016-11-09 07:02] LABS: HEMATOCRIT 38.8 % (36-46); MEAN CORPUSCULAR HEMOGLOBIN 28.1 pg (26.0-34.0); MEAN CORPUSCULAR HGB CONC 30.9 G/dL (31.0-37.0); MEAN CORPUSCULAR VOLUME 91 fL (80-100); PLATELET COUNT (AUTO) 596 K/uL (150-450); RED BLOOD CELL COUNT(AUTO) 4.27 MIL/uL (4.00-5.20); RED CELL DISTRIBUTION WIDTH 15.9 % (11.5-14.5)
[2016-11-09 07:57] VITALS: BP 124/38
[2016-11-09] MEDS: OXYGEN THERAPY IH SCH ×2 (08:15→20:27)
[2016-11-09] MEDS: ASPIRIN 81 MG EC TABLET PO SCH (08:16)
[2016-11-09 08:49] LABS: BAND NEUTROPHILS % (MANUAL) 4 % (1-5); LYMPHOCYTES % (MANUAL) 10 % (22-44); RBC MORPHOLOGY COMMENT NORMAL RBC MORPH; TOTAL CELLS COUNTED 100
[2016-11-09 11:22] LABS: ALBUMIN/GLOBULIN RAITO (PEP) 1.2 (0.7-1.7); ALPHA-1 GLOBULINS(PEP) 0.2 g/dL (0.0-0.4); ALPHA-2 GLOBULINS (PEP) 0.8 g/dL (0.4-1.0); BETA (PEP) 1.1 g/dL (0.7-1.3); GAMMA GLOBULINS (PEP) 1.3 g/dL (0.4-1.8); GLOBULIN TOTAL (PEP) 3.4 g/dL (2.2-3.9); M-SPIKE (PEP) Not Observed g/dL (Not Observed); TOTAL PROTEIN 7.4 g/dL (6.0-8.5)
[2016-11-09 12:00] VITALS: BP 117/40
[2016-11-09] MEDS: ALBUMIN HUMAN 25%-25GM/100ML 100 ML IV SCH ×3 (12:00→22:39)
[2016-11-09 13:37] LABS: GLUCOSE COMMENT 1 Received Meds; GLUCOSE,POINT OF CARE 213 MG/DL (70-110)
[2016-11-09 13:37] LABS: GLUCOSE COMMENT 1 Received Meds; GLUCOSE,POINT OF CARE 185 MG/DL (70-110)
[2016-11-09 13:37] LABS: GLUCOSE,POINT OF CARE 194 MG/DL (70-110)
[2016-11-09 13:38] LABS: GLUCOSE COMMENT 1 Received Meds; GLUCOSE,POINT OF CARE 154 MG/DL (70-110)
[2016-11-09 13:38] LABS: GLUCOSE,POINT OF CARE 121 MG/DL (70-110)
[2016-11-09 13:38] LABS: GLUCOSE COMMENT 1 Received Meds; GLUCOSE,POINT OF CARE 170 MG/DL (70-110)
[2016-11-09 13:38] LABS: GLUCOSE COMMENT 1 Received Meds; GLUCOSE,POINT OF CARE 190 MG/DL (70-110)
[2016-11-09 13:38] LABS: GLUCOSE COMMENT 1 Received Meds; GLUCOSE,POINT OF CARE 178 MG/DL (70-110)
[2016-11-09 13:38] LABS: GLUCOSE COMMENT 1 Received Meds; GLUCOSE,POINT OF CARE 235 MG/DL (70-110)
[2016-11-09 13:38] LABS: GLUCOSE COMMENT 1 Received Meds; GLUCOSE,POINT OF CARE 164 MG/DL (70-110)
[2016-11-09 13:42] LABS: GLUCOSE COMMENT 1 Received Meds; GLUCOSE,POINT OF CARE 149 MG/DL (70-110)
[2016-11-09 13:42] LABS: GLUCOSE COMMENT 1 Received Meds; GLUCOSE,POINT OF CARE 165 MG/DL (70-110)
[2016-11-09] MEDS: BUDESONIDE 0.5 MG/2 ML NEB SOLUTION NEB SCH ×2 (14:44→21:09)
[2016-11-09 16:17] VITALS: BP 127/42
[2016-11-09 17:24] LABS: CREATININE 2.6 mg/dL (0.60-1.30)
[2016-11-09 19:46] VITALS: BP 124/82
[2016-11-09] MEDS ORDERED: AMIODARONE HCL 360 MG in DEXTROSE 5%-WATER 242.8 ML IV ONE (20:00)
[2016-11-09] MEDS ORDERED: DIGOXIN 250 MCG/ML 2 ML AMP IVP ONE (20:00)
[2016-11-09] MEDS ORDERED: AMIODARONE HCL 150 MG in DEXTROSE 5%-WATER 97 ML IV ONE (20:00)
[2016-11-09 20:43] LABS: ABG A-A DIFF O2 89.7 mmHg (10-20.0); ABG BASE EXCESS -13.2 mmol/L (-2.0-3.0); ABG HCO3 14.4 mmol/L (22.0-26.0); ABG PCO2 46 mmHg (35-45); TEMPERATURE, FAHRENHEIT, BG 98.6 FAHREN (96.0-98.6)
[2016-11-09 20:44] LABS: ABG PH 7.148 (7.35-7.450); ALLEN TEST, BLOOD GAS Positive
[2016-11-09] MEDS: ALBUTEROL SULFATE 2.5 MG/0.5 ML NEB SOLUTION NEB PRN (21:09)
[2016-11-09] MEDS: IPRATROPIUM BROMIDE 0.5 MG/2.5 ML NEB SOLUTION NEB PRN (21:09)
[2016-11-09] MEDS ORDERED: SODIUM BICARBONATE [ADULT] 8.4% 50 MEQ/50 ML SYRINGE IVP ONE (21:15)
[2016-11-09] MEDS ORDERED: SODIUM BICARBONATE 100 MEQ in DEXTROSE 5%-WATER 1,000 ML IV SCH (21:15)
[2016-11-09] MEDS ORDERED: ALBUTEROL SULFATE HFA 90 MCG/PUFF 8 GM INHALER IH PRN (23:45)
[2016-11-10] VITALS (7 sets, daily range): BP systolic 132–157; BP diastolic 40–72
[2016-11-10 00:56] LABS: ABG HCO3 25.9 mmol/L (22.0-26.0); ABG OXYHEMOGLOBIN 89.3 % (94.0-100.0); ABG PCO2 59 mmHg (35-45); ALLEN TEST, BLOOD GAS Positive; TEMPERATURE, FAHRENHEIT, BG 97.8 FAHREN (96.0-98.6)
[2016-11-10] MEDS: CefTRIAXone 1 GM/DEXTROSE 50 ML IV SCH (01:23)
[2016-11-10] MEDS ORDERED: AMIODARONE HCL 540 MG in DEXTROSE 5%-WATER 239.2 ML IV ONE (02:00)
[2016-11-10] MEDS: AZITHROMYCIN 250 MG in SODIUM CHLORIDE 0.9% 150 ML IV SCH ×2 (02:37→23:44)
[2016-11-10 05:22] LABS: ALPHA-1 URINE (ELP) 3.9 %; ALPHA-2 URINE(ELP) 7.5 %; BETA URINE(ELP) 12.5 %; GAMMA URINE(ELP) 21.3 %; TOTAL PROTEIN URINE 62.3 mg/dL (Not Estab.)
[2016-11-10] MEDS: ALBUMIN HUMAN 25%-25GM/100ML 100 ML IV SCH ×3 (05:30→16:00)
[2016-11-10] MEDS: GlipiZIDE 5 MG TABLET PO SCH (05:31)
[2016-11-10 06:04] LABS: CALCIUM, TOTAL 8.1 mg/dL (8.8-10.5); CREATININE 2.37 mg/dL (0.60-1.30); MAGNESIUM 2.7 mg/dL (1.80-2.40); PHOSPHORUS 5.2 mg/dL (2.5-4.9); POTASSIUM 4.2 mmol/L (3.5-5.1)
[2016-11-10] MEDS: INSULIN ASPART 100 UNITS/ML SQ PRN ×4 (06:29→22:05)
[2016-11-10 06:42] LABS: GLUCOSE COMMENT 1 Received Meds; GLUCOSE,POINT OF CARE 221 MG/DL (70-110)
[2016-11-10 06:42] LABS: GLUCOSE COMMENT 1 Received Meds; GLUCOSE,POINT OF CARE 229 MG/DL (70-110)
[2016-11-10] MEDS: BUDESONIDE 0.5 MG/2 ML NEB SOLUTION NEB SCH ×2 (08:17→20:28)
[2016-11-10] MEDS: OXYGEN THERAPY IH SCH (08:17)
[2016-11-10 08:30] LABS: ABG A-A DIFF O2 84.5 mmHg (10-20.0); ABG BASE EXCESS 4.2 mmol/L (-2.0-3.0); ABG HCO3 27.3 mmol/L (22.0-26.0); ABG OXYHEMOGLOBIN 92.1 % (94.0-100.0); ABG PCO2 55 mmHg (35-45); ABG PH 7.351 (7.35-7.450)
[2016-11-10] MEDS ORDERED: FUROSEMIDE 40 MG/4 ML VIAL IVP ONE (08:30)
[2016-11-10] MEDS: MetFORMIN HCL 500 MG TABLET PO SCH ×2 (08:30→18:11)
[2016-11-10 08:32] LABS: ALLEN TEST, BLOOD GAS Positive; IPAP, BG 14 cm H2O
[2016-11-10] MEDS: AMOX TR/POT CLAV 500 MG/125 MG TABLET PO SCH ×2 (08:34→20:55)
[2016-11-10] MEDS: ASPIRIN 81 MG EC TABLET PO SCH (08:34)
[2016-11-10 12:49] LABS: GLUCOSE COMMENT 1 Received Meds; GLUCOSE,POINT OF CARE 228 MG/DL (70-110)
[2016-11-10 12:49] LABS: GLUCOSE COMMENT 1 Received Meds; GLUCOSE,POINT OF CARE 178 MG/DL (70-110)
[2016-11-10] MEDS ORDERED: METOLAZONE 5 MG TABLET PO ONE (13:15)
[2016-11-10] MEDS ORDERED: BUMETANIDE 0.25 MG/ML 10 ML VIAL IVP ONE (13:15)
[2016-11-10 14:11] LABS: CALCIUM, TOTAL 8.1 mg/dL (8.8-10.5); CREATININE 2.4 mg/dL (0.60-1.30); POTASSIUM 4.4 mmol/L (3.5-5.1)
[2016-11-10] MEDS ORDERED: 0.9% SODIUM CHLORIDE 5 ML NEB SOLUTION NEB ONE (20:19)
[2016-11-10] MEDS: AMIODARONE HCL 750 MG in DEXTROSE 5%-WATER 485 ML IV SCH (20:54)
[2016-11-10] MEDS ORDERED: HEPARIN SODIUM,PORCINE 1,000 UNITS/ML VIAL IVP ONE ×2 (21:00)
[2016-11-10] MEDS ORDERED: MANNITOL 25%-12.5 GM/50 ML VIAL IVP PRN (21:00)
[2016-11-10] MEDS ORDERED: SODIUM CHLORIDE 0.9% 250 ML IV ONE (23:37)
[2016-11-11] VITALS (7 sets, daily range): BP systolic 121–142; BP diastolic 40–55
[2016-11-11] MEDS ORDERED: SODIUM CHLORIDE 0.9% 250 ML IV ONE (02:03)
[2016-11-11] MEDS: CefTRIAXone 1 GM/DEXTROSE 50 ML IV SCH (02:08)
[2016-11-11 04:57] LABS: GLUCOSE,POINT OF CARE 170 MG/DL (70-110)
[2016-11-11] MEDS: GlipiZIDE 5 MG TABLET PO SCH (06:31)
[2016-11-11 07:37] LABS: GLUCOSE,POINT OF CARE 229 MG/DL (70-110)
[2016-11-11 07:37] LABS: GLUCOSE COMMENT 1 Received Meds; GLUCOSE,POINT OF CARE 149 MG/DL (70-110)
[2016-11-11] MEDS: ASPIRIN 81 MG EC TABLET PO SCH (08:07)
[2016-11-11] MEDS: OXYGEN THERAPY IH SCH ×3 (08:07→20:42)
[2016-11-11] MEDS: AMOX TR/POT CLAV 500 MG/125 MG TABLET PO SCH ×2 (08:07→20:42)
[2016-11-11] MEDS: IPRATROPIUM BROMIDE 0.5 MG/2.5 ML NEB SOLUTION NEB PRN (08:35)
[2016-11-11] MEDS: ALBUTEROL SULFATE 2.5 MG/0.5 ML NEB SOLUTION NEB PRN (08:35)
[2016-11-11] MEDS: BUDESONIDE 0.5 MG/2 ML NEB SOLUTION NEB SCH ×2 (08:35→23:14)
[2016-11-11 08:59] LABS: HEMATOCRIT 36.6 % (36-46); HEMOGLOBIN 11.3 g/dL (12.0-16.0); MEAN CORPUSCULAR HEMOGLOBIN 28.1 pg (26.0-34.0); MEAN CORPUSCULAR HGB CONC 30.9 G/dL (31.0-37.0); MEAN CORPUSCULAR VOLUME 91 fL (80-100); PLATELET COUNT (AUTO) 578 K/uL (150-450); RED BLOOD CELL COUNT(AUTO) 4.02 MIL/uL (4.00-5.20); RED CELL DISTRIBUTION WIDTH 16.3 % (11.5-14.5)
[2016-11-11 09:03] LABS: CALCIUM, TOTAL 8.5 mg/dL (8.8-10.5); CREATININE 2.37 mg/dL (0.60-1.30); POTASSIUM 4.6 mmol/L (3.5-5.1)
[2016-11-11 09:07] LABS: MAGNESIUM 2.3 mg/dL (1.80-2.40); PHOSPHORUS 4.5 mg/dL (2.5-4.9)
[2016-11-11 09:13] LABS: BAND NEUTROPHILS % (MANUAL) 3 % (1-5); LYMPHOCYTES % (MANUAL) 9 % (22-44); TOTAL CELLS COUNTED 100
[2016-11-11 09:14] LABS: RBC MORPHOLOGY COMMENT NORMAL RBC MORPH
[2016-11-11 11:53] LABS: GLUCOSE,POINT OF CARE 115 MG/DL (70-110)
[2016-11-11 11:53] LABS: GLUCOSE,POINT OF CARE 128 MG/DL (70-110)
[2016-11-11] MEDS: BUMETANIDE 0.25 MG/ML 10 ML VIAL IVP SCH ×2 (12:30→20:42)
[2016-11-11] MEDS: INSULIN ASPART 100 UNITS/ML SQ PRN (13:03)
[2016-11-11] MEDS ORDERED: HEPARIN SODIUM,PORCINE 1,000 UNITS/ML VIAL IVP ONE (17:56)
[2016-11-11] MEDS ORDERED: 0.9% SODIUM CHLORIDE 5 ML NEB SOLUTION NEB ONE (19:55)
[2016-11-11] MEDS: AMIODARONE HCL 750 MG in DEXTROSE 5%-WATER 485 ML IV SCH (20:44)
[2016-11-11 22:52] LABS: GLUCOSE,POINT OF CARE 112 MG/DL (70-110)
[2016-11-11] MEDS: AZITHROMYCIN 250 MG in SODIUM CHLORIDE 0.9% 150 ML IV SCH (23:43)
[2016-11-12 04:48] VITALS: BP 131/49
[2016-11-12] MEDS: GlipiZIDE 5 MG TABLET PO SCH (06:32)
[2016-11-12 07:30] VITALS: BP 148/44
[2016-11-12 08:30] LABS: HEMATOCRIT 37.8 % (36-46); HEMOGLOBIN 11.8 g/dL (12.0-16.0); MEAN CORPUSCULAR HEMOGLOBIN 28.4 pg (26.0-34.0); MEAN CORPUSCULAR HGB CONC 31.1 G/dL (31.0-37.0); MEAN CORPUSCULAR VOLUME 91 fL (80-100); PLATELET COUNT (AUTO) 604 K/uL (150-450); RED BLOOD CELL COUNT(AUTO) 4.14 MIL/uL (4.00-5.20); RED CELL DISTRIBUTION WIDTH 16.3 % (11.5-14.5)
[2016-11-12 08:31] LABS: WHITE BLOOD COUNT (AUTO) 44.1 K/uL (4.5-11.0)
[2016-11-12 08:42] LABS: CALCIUM, TOTAL 8.3 mg/dL (8.8-10.5); CREATININE 2.25 mg/dL (0.60-1.30); MAGNESIUM 2.1 mg/dL (1.80-2.40); POTASSIUM 4.4 mmol/L (3.5-5.1)
[2016-11-12] MEDS: OXYGEN THERAPY IH SCH ×2 (08:44→20:15)
[2016-11-12] MEDS: BUMETANIDE 0.25 MG/ML 10 ML VIAL IVP SCH ×2 (08:45→20:14)
[2016-11-12] MEDS: ASPIRIN 81 MG EC TABLET PO SCH (08:45)
[2016-11-12] MEDS: AMOX TR/POT CLAV 500 MG/125 MG TABLET PO SCH ×2 (08:45→20:14)
[2016-11-12 09:00] LABS: URIC ACID 9.5 mg/dL (2.6-7.2)
[2016-11-12] MEDS: BUDESONIDE 0.5 MG/2 ML NEB SOLUTION NEB SCH ×2 (09:00→20:32)
[2016-11-12 09:12] LABS: BAND NEUTROPHILS % (MANUAL) 5 % (1-5); EOSINOPHILS % (MANUAL) 1 % (1-6); LYMPHOCYTES % (MANUAL) 3 % (22-44); TOTAL CELLS COUNTED 100
[2016-11-12 09:13] LABS: BASOPHILS % (MANUAL) 1 % (0-2)
[2016-11-12 10:47] LABS: GLUCOSE,POINT OF CARE 124 MG/DL (70-110)
[2016-11-12 11:16] VITALS: BP 136/40
[2016-11-12] MEDS: INSULIN ASPART 100 UNITS/ML SQ PRN ×3 (11:57→20:47)
[2016-11-12 15:16] VITALS: BP 144/43
[2016-11-12 19:34] VITALS: BP 124/37
[2016-11-12] MEDS: AMIODARONE HCL 750 MG in DEXTROSE 5%-WATER 485 ML IV SCH (22:55)
[2016-11-12 23:39] VITALS: BP 134/36
[2016-11-13] VITALS (19 sets, daily range): BP systolic 113–175; BP diastolic 32–84
[2016-11-13] MEDS: GlipiZIDE 5 MG TABLET PO SCH (06:30)
[2016-11-13 07:12] LABS: HEMATOCRIT 37.7 % (36-46); HEMOGLOBIN 11.7 g/dL (12.0-16.0); MEAN CORPUSCULAR HEMOGLOBIN 28.2 pg (26.0-34.0); MEAN CORPUSCULAR VOLUME 91 fL (80-100); PLATELET COUNT (AUTO) 619 K/uL (150-450); RED BLOOD CELL COUNT(AUTO) 4.14 MIL/uL (4.00-5.20); RED CELL DISTRIBUTION WIDTH 16.3 % (11.5-14.5)
[2016-11-13 07:28] LABS: CALCIUM, TOTAL 8.2 mg/dL (8.8-10.5); CREATININE 3.03 mg/dL (0.60-1.30); MAGNESIUM 2.3 mg/dL (1.80-2.40); PHOSPHORUS 5.1 mg/dL (2.5-4.9); POTASSIUM 4.7 mmol/L (3.5-5.1)
[2016-11-13 07:39] LABS: WHITE BLOOD COUNT (AUTO) 37.5 K/uL (4.5-11.0)
[2016-11-13] MEDS ORDERED: 0.9% SODIUM CHLORIDE 5 ML NEB SOLUTION NEB ONE (08:09)
[2016-11-13] MEDS ORDERED: SODIUM BICARBONATE 50 MEQ/50 ML VIAL ONE (08:37)
[2016-11-13] MEDS ORDERED: HEPARIN SODIUM 1000 UNITS/NS 1,000 ML ONE (08:37)
[2016-11-13] MEDS ORDERED: IOHEXOL 300 MG/ML 150 ML VIAL ONE (08:37)
[2016-11-13] MEDS ORDERED: SODIUM CHLORIDE 0.9% 500 ML IV ONE (08:45)
[2016-11-13] MEDS ORDERED: LIDOCAINE 1% 30 ML/SOD BICARB 8.4% 4 ML SQ ONE (08:48)
[2016-11-13] MEDS ORDERED: HEPARIN SODIUM 2,000 UNITS in HEPARIN SODIUM 1000 UNITS/NS 1,000 ML IARTER ONE (08:50)
[2016-11-13] MEDS ORDERED: IOHEXOL 300 MG/ML 150 ML VIAL IARTER ONE (08:51)
[2016-11-13] MEDS: AMOX TR/POT CLAV 500 MG/125 MG TABLET PO SCH ×2 (09:00→20:29)
[2016-11-13] MEDS: BUMETANIDE 0.25 MG/ML 10 ML VIAL IVP SCH ×2 (09:00→20:29)
[2016-11-13 09:05] LABS: BAND NEUTROPHILS % (MANUAL) 4 % (1-5); BASOPHILS % (MANUAL) 1 % (0-2); EOSINOPHILS % (MANUAL) 1 % (1-6); LYMPHOCYTES % (MANUAL) 3 % (22-44); TOTAL CELLS COUNTED 100
[2016-11-13 09:06] LABS: RBC MORPHOLOGY COMMENT NORMAL RBC MORPH
[2016-11-13] MEDS: OXYGEN THERAPY IH SCH ×2 (09:17→20:00)
[2016-11-13] MEDS: BUDESONIDE 0.5 MG/2 ML NEB SOLUTION NEB SCH ×2 (09:52→20:52)
[2016-11-13 10:27] LABS: GLUCOSE COMMENT 1 Received Meds; GLUCOSE,POINT OF CARE 160 MG/DL (70-110)
[2016-11-13] MEDS: ASPIRIN 81 MG EC TABLET PO SCH (11:29)
[2016-11-13] MEDS ORDERED: HEPARIN SODIUM,PORCINE 1,000 UNITS/ML VIAL IVP ONE ×3 (12:00→12:45)
[2016-11-13] MEDS ORDERED: ALBUMIN HUMAN 25%-12.5GM/50ML IV BOTTLE IV PRN (12:45)
[2016-11-13] MEDS ORDERED: MANNITOL 25%-12.5 GM/50 ML VIAL IVP PRN (12:45)
[2016-11-13] MEDS: INSULIN ASPART 100 UNITS/ML SQ PRN (13:07)
[2016-11-13] MEDS ORDERED: SODIUM CHLORIDE 0.9% 1,000 ML IV ONE ×2 (13:44)
[2016-11-13] MEDS: AMIODARONE HCL 750 MG in DEXTROSE 5%-WATER 485 ML IV SCH (21:33)
[2016-11-14 04:33] VITALS: BP 134/36
[2016-11-14 06:26] LABS: TOTAL PROTEIN, SERUM 6.6 g/dL (6.4-8.2)
[2016-11-14] MEDS: GlipiZIDE 5 MG TABLET PO SCH (06:29)
[2016-11-14 07:21] VITALS: BP 133/38
[2016-11-14] MEDS: AMIODARONE HCL 200 MG TABLET PO SCH ×3 (08:00→23:55)
[2016-11-14] MEDS: BUMETANIDE 0.25 MG/ML 10 ML VIAL IVP SCH ×2 (08:28→20:28)
[2016-11-14] MEDS: ASPIRIN 81 MG EC TABLET PO SCH (08:28)
[2016-11-14] MEDS: OXYGEN THERAPY IH SCH ×2 (08:28→20:45)
[2016-11-14] MEDS: AMOX TR/POT CLAV 500 MG/125 MG TABLET PO SCH ×2 (08:28→20:28)
[2016-11-14] MEDS ORDERED: 0.9% SODIUM CHLORIDE 5 ML NEB SOLUTION NEB ONE (09:03)
[2016-11-14] MEDS: BUDESONIDE 0.5 MG/2 ML NEB SOLUTION NEB SCH ×2 (09:03→20:45)
[2016-11-14] MEDS ORDERED: LACTULOSE 20 GM/30 ML SOLUTION UDCUP PO ONE (10:00)
[2016-11-14 11:26] VITALS: BP 132/39
[2016-11-14] MEDS: INSULIN ASPART 100 UNITS/ML SQ PRN ×3 (11:29→20:56)
[2016-11-14] MEDS ORDERED: MAGNESIUM HYDROXIDE SUSPENSION 30 ML UDCUP PO PRN (15:15)
[2016-11-14] MEDS ORDERED: BISACODYL 10 MG RECTAL RECTAL SUPPOSITORY PR PRN (15:15)
[2016-11-14] MEDS: DOCUSATE SODIUM 100 MG CAPSULE PO SCH ×2 (15:18→20:28)
[2016-11-14 15:26] VITALS: BP 112/40
[2016-11-14 19:27] LABS: GLUCOSE,POINT OF CARE 152 MG/DL (70-110)
[2016-11-14 19:27] LABS: GLUCOSE,POINT OF CARE 121 MG/DL (70-110)
[2016-11-14 19:48] VITALS: BP 134/34
[2016-11-14] MEDS: AMIODARONE HCL 750 MG in DEXTROSE 5%-WATER 485 ML IV SCH (23:14)
[2016-11-15] VITALS (7 sets, daily range): BP systolic 128–145; BP diastolic 32–44
[2016-11-15] MEDS: INSULIN ASPART 100 UNITS/ML SQ PRN ×3 (06:11→20:21)
[2016-11-15] MEDS: GlipiZIDE 5 MG TABLET PO SCH (06:51)
[2016-11-15 07:25] LABS: HEMATOCRIT 36.7 % (36-46); HEMOGLOBIN 11.5 g/dL (12.0-16.0); MEAN CORPUSCULAR HEMOGLOBIN 28.2 pg (26.0-34.0); MEAN CORPUSCULAR HGB CONC 31.2 G/dL (31.0-37.0); MEAN CORPUSCULAR VOLUME 90 fL (80-100); PLATELET COUNT (AUTO) 646 K/uL (150-450); RED BLOOD CELL COUNT(AUTO) 4.07 MIL/uL (4.00-5.20); RED CELL DISTRIBUTION WIDTH 16.5 % (11.5-14.5)
[2016-11-15 07:29] LABS: WHITE BLOOD COUNT (AUTO) 49.4 K/uL (4.5-11.0)
[2016-11-15 07:30] LABS: ALBUMIN 3.9 g/dL (3.4-5.0); BILIRUBIN,TOTAL 0.5 mg/dL (0.1-1.0); CALCIUM, TOTAL 8.8 mg/dL (8.8-10.5); CREATININE 3.7 mg/dL (0.60-1.30); MAGNESIUM 2.5 mg/dL (1.80-2.40); TOTAL PROTEIN, SERUM 6.7 g/dL (6.4-8.2)
[2016-11-15 08:38] LABS: BAND NEUTROPHILS % (MANUAL) 12 % (1-5); LYMPHOCYTES % (MANUAL) 4 % (22-44); TOTAL CELLS COUNTED 100
[2016-11-15] MEDS: AMOX TR/POT CLAV 500 MG/125 MG TABLET PO SCH ×2 (08:44→20:19)
[2016-11-15] MEDS: ASPIRIN 81 MG EC TABLET PO SCH (08:45)
[2016-11-15] MEDS: DOCUSATE SODIUM 100 MG CAPSULE PO SCH ×3 (08:45→20:19)
[2016-11-15] MEDS: OXYGEN THERAPY IH SCH ×2 (08:45→08:56)
[2016-11-15] MEDS: BUMETANIDE 0.25 MG/ML 10 ML VIAL IVP SCH ×2 (08:45→20:20)
[2016-11-15] MEDS: BUDESONIDE 0.5 MG/2 ML NEB SOLUTION NEB SCH ×2 (08:56→21:32)
[2016-11-15] MEDS: AMIODARONE HCL 200 MG TABLET PO SCH (09:00)
[2016-11-15 13:07] LABS: GLUCOSE COMMENT 1 Received Meds; GLUCOSE,POINT OF CARE 171 MG/DL (70-110)
[2016-11-15 18:22] LABS: GLUCOSE,POINT OF CARE 135 MG/DL (70-110)
[2016-11-15 18:22] LABS: GLUCOSE COMMENT 1 Received Meds; GLUCOSE,POINT OF CARE 164 MG/DL (70-110)
[2016-11-15 18:22] LABS: GLUCOSE,POINT OF CARE 142 MG/DL (70-110)
[2016-11-16 04:25] VITALS: BP 123/47
[2016-11-16 05:54] LABS: ALBUMIN 3.8 g/dL (3.4-5.0); BILIRUBIN,TOTAL 0.4 mg/dL (0.1-1.0); CALCIUM, TOTAL 8.6 mg/dL (8.8-10.5); CREATININE 4.88 mg/dL (0.60-1.30); MAGNESIUM 2.9 mg/dL (1.80-2.40); POTASSIUM 5.6 mmol/L (3.5-5.1); TOTAL PROTEIN, SERUM 6.5 g/dL (6.4-8.2)
[2016-11-16] MEDS: GlipiZIDE 5 MG TABLET PO SCH (06:16)
[2016-11-16] MEDS: INSULIN ASPART 100 UNITS/ML SQ PRN (06:19)
[2016-11-16 06:49] LABS: HEMOGLOBIN 11.6 g/dL (12.0-16.0); MEAN CORPUSCULAR HEMOGLOBIN 27.7 pg (26.0-34.0); MEAN CORPUSCULAR HGB CONC 30.5 G/dL (31.0-37.0); MEAN CORPUSCULAR VOLUME 91 fL (80-100); PLATELET COUNT (AUTO) 616 K/uL (150-450); RED BLOOD CELL COUNT(AUTO) 4.17 MIL/uL (4.00-5.20); RED CELL DISTRIBUTION WIDTH 15.8 % (11.5-14.5)
[2016-11-16 07:50] VITALS: BP 127/37
[2016-11-16 09:00] LABS: BAND NEUTROPHILS % (MANUAL) 13 % (1-5); EOSINOPHILS % (MANUAL) 1 % (1-6); LYMPHOCYTES % (MANUAL) 9 % (22-44); RBC MORPHOLOGY COMMENT NORMAL RBC MORPH; TOTAL CELLS COUNTED 100
[2016-11-16] MEDS: BUDESONIDE 0.5 MG/2 ML NEB SOLUTION NEB SCH ×2 (09:10→20:07)
[2016-11-16] MEDS: OXYGEN THERAPY IH SCH (09:10)
[2016-11-16 11:07] VITALS: BP 126/39
[2016-11-16] MEDS ORDERED: MANNITOL 25%-12.5 GM/50 ML VIAL IVP PRN (11:30)
[2016-11-16] MEDS ORDERED: ALBUMIN HUMAN 25%-12.5GM/50ML IV BOTTLE IV PRN (11:30)
[2016-11-16] MEDS ORDERED: HEPARIN SODIUM,PORCINE 1,000 UNITS/ML VIAL IVP ONE ×3 (11:30→18:27)
[2016-11-16] MEDS: AMIODARONE HCL 200 MG TABLET PO SCH (12:41)
[2016-11-16] MEDS: AMOX TR/POT CLAV 500 MG/125 MG TABLET PO SCH ×2 (12:41→20:32)
[2016-11-16] MEDS: ASPIRIN 81 MG EC TABLET PO SCH (12:41)
[2016-11-16] MEDS: DOCUSATE SODIUM 100 MG CAPSULE PO SCH ×3 (12:41→20:32)
[2016-11-16] MEDS: BUMETANIDE 0.25 MG/ML 10 ML VIAL IVP SCH ×2 (12:41→20:32)
[2016-11-16 16:34] VITALS: BP 117/46
[2016-11-16 20:05] VITALS: BP 134/36
[2016-11-17] VITALS (7 sets, daily range): BP systolic 107–128; BP diastolic 33–38
[2016-11-17] MEDS: GlipiZIDE 5 MG TABLET PO SCH (05:41)
[2016-11-17 07:11] LABS: CALCIUM, TOTAL 8.8 mg/dL (8.8-10.5); CREATININE 3.6 mg/dL (0.60-1.30); MAGNESIUM 2.4 mg/dL (1.80-2.40); PHOSPHORUS 4.6 mg/dL (2.5-4.9); POTASSIUM 4.9 mmol/L (3.5-5.1)
[2016-11-17] MEDS ORDERED: 0.9% SODIUM CHLORIDE 5 ML NEB SOLUTION NEB ONE (08:39)
[2016-11-17] MEDS: BUDESONIDE 0.5 MG/2 ML NEB SOLUTION NEB SCH ×2 (08:53→21:54)
[2016-11-17] MEDS: AMIODARONE HCL 200 MG TABLET PO SCH (09:00)
[2016-11-17 09:50] LABS: INR 1.1 (0.9-1.1); PROTHROMBIN TIME 12.1 SEC (9.4-11.6)
[2016-11-17] MEDS: AMOX TR/POT CLAV 500 MG/125 MG TABLET PO SCH ×2 (14:27→21:15)
[2016-11-17] MEDS: DOCUSATE SODIUM 100 MG CAPSULE PO SCH ×3 (14:27→21:15)
[2016-11-17] MEDS: ASPIRIN 81 MG EC TABLET PO SCH (14:27)
[2016-11-17] MEDS: BUMETANIDE 0.25 MG/ML 10 ML VIAL IVP SCH ×2 (14:28→21:15)
[2016-11-17 14:48] LABS: APPEARANCE,UNSPUN,BODY FLUID CLOUDY (CLEAR); COLOR,BODY FLUID YELLOW (LT YELLOW)
[2016-11-17] MEDS: INSULIN ASPART 100 UNITS/ML SQ PRN ×2 (17:49→21:22)
[2016-11-18 04:33] VITALS: BP 120/54
[2016-11-18 07:08] VITALS: BP 147/76
[2016-11-18 15:10] LABS: TOTAL PROTEIN,BODY FLUID,REF 2.4 g/dL
[2016-11-18 17:08] LABS: GLUCOSE,POINT OF CARE 155 MG/DL (70-110)
[2016-11-18 17:08] LABS: GLUCOSE,POINT OF CARE 145 MG/DL (70-110)
[2016-11-18 17:12] LABS: GLUCOSE,POINT OF CARE 152 MG/DL (70-110)
[2016-11-18 17:12] LABS: GLUCOSE COMMENT 1 Received Meds; GLUCOSE,POINT OF CARE 164 MG/DL (70-110)
[2016-11-18 17:17] LABS: GLUCOSE COMMENT 1 Received Meds; GLUCOSE,POINT OF CARE 154 MG/DL (70-110)
== END 2016-11-18 06:45 | disposition short-term general hospital (02) | DRG 280 ==
LOC: EMS 21:35 → 5N 10-29 03:57 → ICU 11-09 22:50 → 5S 11-11 01:12
PROVIDERS: ADMIT Family Medicine; ATTEND Family Medicine
PROC: 0W993ZZ Drainage of Right Pleural Cavity, Percutaneous Approach (ICD-10-PCS; principal; 2016-11-05)
PROC: 06HM33Z Insertion of Infusion Device into Right Femoral Vein, Percutaneous Approach (ICD-10-PCS; 2016-11-10)
PROC: 5A1D60Z (ICD-10-PCS; 2016-11-10)
PROC: 5A09457 Assistance with Respiratory Ventilation, 24-96 Consecutive Hours, Continuous Positive Airway Pressure (ICD-10-PCS; 2016-11-10)
PROC: 4A023N7 Measurement of Cardiac Sampling and Pressure, Left Heart, Percutaneous Approach (ICD-10-PCS; 2016-11-13)
PROC: B2111ZZ Fluoroscopy of Multiple Coronary Arteries using Low Osmolar Contrast (ICD-10-PCS; 2016-11-13)
PROC: B2151ZZ Fluoroscopy of Left Heart using Low Osmolar Contrast (ICD-10-PCS; 2016-11-13)
PROC: 0W993ZZ Drainage of Right Pleural Cavity, Percutaneous Approach (ICD-10-PCS; 2016-11-17)
DX: I21.4 Non-ST elevation (NSTEMI) myocardial infarction (principal); N17.0 Acute kidney failure with tubular necrosis; I50.31 Acute diastolic (congestive) heart failure; J96.02 Acute respiratory failure with hypercapnia; I13.0 Hypertensive heart and chronic kidney disease with heart failure and stage 1 through stage 4 chronic kidney disease, or unspecified chronic kidney disease; J44.0 Chronic obstructive pulmonary disease with (acute) lower respiratory infection; J91.8 Pleural effusion in other conditions classified elsewhere; I25.2 Old myocardial infarction; K21.9 Gastro-esophageal reflux disease without esophagitis; N18.3 Chronic kidney disease, stage 3 (moderate); E11.22 Type 2 diabetes mellitus with diabetic chronic kidney disease; I48.91 Unspecified atrial fibrillation; E78.5 Hyperlipidemia, unspecified; Z78.0 Asymptomatic menopausal state; J20.9 Acute bronchitis, unspecified; I34.0 Nonrheumatic mitral (valve) insufficiency; I35.1 Nonrheumatic aortic (valve) insufficiency; I27.2 Other secondary pulmonary hypertension; E66.01 Morbid (severe) obesity due to excess calories; I25.10 Atherosclerotic heart disease of native coronary artery without angina pectoris; E87.5 Hyperkalemia; E11.21 Type 2 diabetes mellitus with diabetic nephropathy; Z90.49 Acquired absence of other specified parts of digestive tract; Z79.2 Long term (current) use of antibiotics; Z79.84 Long term (current) use of oral hypoglycemic drugs; Z79.82 Long term (current) use of aspirin; Z79.899 Other long term (current) drug therapy; Z23 Encounter for immunization; Z83.3 Family history of diabetes mellitus; Z87.891 Personal history of nicotine dependence
CPT/HCPCS: 32555; 51702; 71020; 71250; 76770; 76942; 82465; 82565; 82570; 82784; 82805; 82945; 82962; 83036; 83605; 83615; 83735; 83986; 84100; 84155; 84156; 84157; 84165; 84166; 84300; 84443; 84520; 84540; 84550; 85379; 86334; 87015; 87040; 87070; 87081; 87086; 87101; 87106; 87184; 87205; 87340; 88108; 88185; 88189; 88305; 88341; 88342; 89050; 89051; 90471; 90935; 93005; 93306; 93308; 94640; 94660; 96365; 96372; 96375; 97161; 97165; 99291; C9113; J0282; J0456; J0696; J1160; J1644; J1650; J1940; J2543; J3490; J7030; J7050; J7060; P9046; Q9967

== ENCOUNTER → 2016-11-13 | Outpatient (CLI) | payer OTHER ==
[~2016-11-13] MED LIST: ALBU8HFA IH; AMOX1TAB15 PO; ASPI-556 PO; GLIP5 PO; LOSA50TA37 PO; METF500T4 PO; METO50 PO; OMEP20 PO
[2016-11-14 14:07] LABS: HEPATITIS C AB SCREEN <0.1 s/co ratio (0.0-0.9)
== END | disposition home or self-care (01) ==
LOC: MERGE 12:12 → LABMN 12:12
PROVIDERS: ATTEND Internal Medicine
DX: T14.8 Other injury of unspecified body region (principal); W46.0XXA Contact with hypodermic needle, initial encounter; Y93.89 Activity, other specified; Y99.8 Other external cause status
CPT/HCPCS: 84460; 86803; 87340